=== PATIENT | female | born 1985 | race Caucasian/White ===

== ENCOUNTER 2018-01-24 19:38 | Emergency (ER) | payer MEDICAID, OTHER ==
[~2018-01-24] VITALS: Ht 160 cm; Wt 82.1 kg
[~2018-01-24 19:38] MED LIST: GABA300C10 PO; SUMA100T4 PO; TOPI50TA8 PO
[2018-01-24 20:03] LABS: BASOPHILS # (AUTO) 0.03 x10^3/uL (0-0.1); BASOPHILS % (AUTO) 1 % (0-1); EOSINOPHILS # (AUTO) 0.11 x10^3/uL (0-0.4); EOSINOPHILS % (AUTO) 2 % (1-7); LYMPHOCYTES # (AUTO) 2.46 x10^3/uL (1-3.4); LYMPHOCYTES % (AUTO) 37 % (22-44); MD NO; MEAN CORPUSCULAR HEMOGLOBIN 32.1 pg (27.0-34.8); MEAN CORPUSCULAR HGB CONC 34.7 g/dL (32.4-35.8); MEAN CORPUSCULAR VOLUME 92.4 fL (80-100); MEAN PLATELET VOLUME 7.2 fL (7.4-10.4); MONOCYTES # (AUTO) 0.46 x10^3/uL (0.2-0.8); MONOCYTES % (AUTO) 7 % (2-9); NEUTROPHILS # (AUTO) 3.57 x10^3/uL (1.8-6.8); NEUTROPHILS % (AUTO) 54 % (42-75); PLATELET COUNT 294 x10^3/uL (130-400); RED BLOOD COUNT 5.31 x10^6/uL (3.82-5.3); RED CELL DISTRIBUTION WIDTH 13.3 % (9.6-15.2)
[2018-01-24 20:16] LABS: ALBUMIN 3.8 g/dL (3.4-5.0); ANION GAP 6 mmol/L (5-15); CALCIUM 8.7 mg/dL (8.5-10.1); CHLORIDE 109 mmol/L (98-107)
[2018-01-24 20:23] LABS: ALANINE AMINOTRANSFERASE 27 U/L (12-78); ALKALINE PHOSPHATASE 72 U/L (45-117); BILIRUBIN,TOTAL 1.3 mg/dL (0.2-1.0); CREATININE 0.85 mg/dL (0.55-1.02); TOTAL PROTEIN 7.3 g/dL (6.4-8.2)
[2018-01-24] MEDS ORDERED: SODIUM CHLORIDE 0.9% 1,000ML IVBOLUS ONE (20:30)
[2018-01-24] MEDS ORDERED: SODIUM CHLORIDE FLUSH 10ML SYR IVF ONE (20:30)
[2018-01-24] MEDS ORDERED: ONDANSETRON 2MG/ML, 2ML ONE (20:36)
[2018-01-24] MEDS ORDERED: HYDROmorphone 2 MG/ML, 1ML ONE (20:39)
[2018-01-24] MEDS ORDERED: OMNIPAQUE 350 MG/ML, 100ML BOTTLE ONE (20:51)
[2018-01-24] MEDS ORDERED: HYDROmorphone 1 MG/ML, 1ML IV ONE (21:00)
[2018-01-24] MEDS ORDERED: ONDANSETRON 2MG/ML, 2ML IVPush ONE (21:00)
[2018-01-24] MEDS ORDERED: ONDANSETRON 4 MG TABLET PO ONE (21:00)
[2018-01-24 22:00] LABS: MICROSCOPIC NOT IND
[2018-01-24 22:02] LABS: CULTURE INDICATED? NO
[2018-01-24 22:54] VITALS: BP 110/74
== END 2018-01-24 22:56 | disposition home or self-care (01) ==
LOC: ED 22:18
DX: R10.31 Right lower quadrant pain (principal); F17.200 Nicotine dependence, unspecified, uncomplicated; Z88.5 Allergy status to narcotic agent; Z88.1 Allergy status to other antibiotic agents; F41.1 Generalized anxiety disorder; F32.9 Major depressive disorder, single episode, unspecified
CPT/HCPCS: 36415; 74177; 80053; 81003; 83690; 84703; 85025; 96361; 96374; 96375; 99285; J1170; J2405; J7030; Q9967

== ENCOUNTER 2018-04-17 13:22 | Emergency (ER) | payer OTHER ==
[~2018-04-17] VITALS: Ht 160 cm; Wt 82.3 kg
[2018-04-17 14:49] LABS: BASOPHILS # (AUTO) 0.02 x10^3/uL (0-0.1); BASOPHILS % (AUTO) 0 % (0-1); EOSINOPHILS # (AUTO) 0.04 x10^3/uL (0-0.4); EOSINOPHILS % (AUTO) 1 % (1-7); LYMPHOCYTES # (AUTO) 1.54 x10^3/uL (1-3.4); LYMPHOCYTES % (AUTO) 19 % (22-44); MD NO; MEAN CORPUSCULAR HEMOGLOBIN 31.6 pg (27.0-34.8); MEAN CORPUSCULAR HGB CONC 33.7 g/dL (32.4-35.8); MEAN CORPUSCULAR VOLUME 93.6 fL (80-100); MEAN PLATELET VOLUME 7.1 fL (7.4-10.4); MONOCYTES # (AUTO) 0.31 x10^3/uL (0.2-0.8); MONOCYTES % (AUTO) 4 % (2-9); NEUTROPHILS # (AUTO) 6.27 x10^3/uL (1.8-6.8); NEUTROPHILS % (AUTO) 77 % (42-75); PLATELET COUNT 270 x10^3/uL (130-400); RED BLOOD COUNT 5.06 x10^6/uL (3.82-5.3); RED CELL DISTRIBUTION WIDTH 13.6 % (9.6-15.2)
[2018-04-17 14:59] LABS: ALANINE AMINOTRANSFERASE 27 U/L (12-78); ALBUMIN 3.9 g/dL (3.4-5.0); ANION GAP 6 mmol/L (5-15); CALCIUM 8.3 mg/dL (8.5-10.1); CHLORIDE 109 mmol/L (98-107); CREATININE 0.68 mg/dL (0.55-1.02)
[2018-04-17 15:01] LABS: ALKALINE PHOSPHATASE 63 U/L (45-117); BILIRUBIN,TOTAL 0.4 mg/dL (0.2-1.0)
--- NOTE | 2018-04-17 15:27 | NUR ---
PT IN RT LATERAL POSITION ON BED. C/O RLQ PAIN - STARTED 6 MONTHS AGO, WORSENED 3 DAYS AGO. REPORTS SHE'S SEEN OTHER PROVIDERS "BUT NOBODY CAN TELL ME WHAT'S WRONG". LMP: N/A - [id number]. LAST ORAL INTAKE: 1230. LAST BM: YESTERDAY, DIRK BOWMAN. NAPROXEN 500MG AT 1100 TODAY.
[2018-04-17] MEDS ORDERED: NAPR-685 PO (15:31)
[2018-04-17 15:43] LABS: MICROSCOPIC NOT IND
[2018-04-17 15:45] LABS: CULTURE INDICATED? NO
[2018-04-17 16:42] VITALS: BP 135/72
== END 2018-04-17 16:44 | disposition home or self-care (01) ==
LOC: ED 16:04
DX: G89.29 Other chronic pain (principal); R10.11 Right upper quadrant pain; R10.31 Right lower quadrant pain; F17.200 Nicotine dependence, unspecified, uncomplicated; F15.10 Other stimulant abuse, uncomplicated
CPT/HCPCS: 36415; 74021; 80053; 81003; 83690; 85025; 99284

== ENCOUNTER 2019-02-25 23:22 | Emergency (ER) | payer OTHER ==
[~2019-02-25] VITALS: Ht 160 cm; Wt 70.2 kg
[~2019-02-25 23:22] MED LIST changes: +NAPR-685 PO
[2019-02-25] MEDS ORDERED: DIPH,PERTUSS(ACELL),TET VAC/PF 0.5 ML IM-VACC ONE (23:40)
--- NOTE | 2019-02-25 23:46 | NUR ---
GCS: 15, ICE APPLIED AND ELEVATION TO R HAND.
[2019-02-26] MEDS ORDERED: DIPH,PERTUSS(ACELL),TET VAC/PF 0.5 ML IM-VACC ONE
[2019-02-26 01:16] VITALS: BP 133/81
== END 2019-02-26 01:18 | disposition home or self-care (01) ==
LOC: ED 02-26 01:12
DX: S60.221A Contusion of right hand, initial encounter (principal); F32.9 Major depressive disorder, single episode, unspecified; F41.1 Generalized anxiety disorder; Z90.49 Acquired absence of other specified parts of digestive tract; Z90.710 Acquired absence of both cervix and uterus; F17.200 Nicotine dependence, unspecified, uncomplicated; Y04.0XXA Assault by unarmed brawl or fight, initial encounter; Y93.89 Activity, other specified; Y92.009 Unspecified place in unspecified non-institutional (private) residence as the place of occurrence of the external cause; Y99.8 Other external cause status
CPT/HCPCS: 29125; 90471; 90715; 99283